=== PATIENT | female | born 1960 | race African-American/Black ===

== ENCOUNTER 2016-11-15 09:00 | Outpatient (CLI) ==
--- NOTE | 2016-11-15 09:27 | US ---
EXAM: Diagnostic right breast ultrasound HISTORY: Questionable palpable lump in the right breast near 5 o'clock. COMPARISON: Diagnostic mammogram 11/02/2016 FINDINGS: There is no sonographic abnormality to account for patient's palpable lump. No cyst or pa renchymal abnormalities present. There is normal breast parenchyma identified. IMPRESSION: No nodule to account for patient's palpable lump. Recommendation: No follow-up is required by mammogram or ultrasound. If nodule persists or increas es in size, follow-up may be obtained as clinically indicated. BIRADS category 1: Negative
== END 2016-11-15 09:01 | disposition home or self-care (01) ==
LOC: RAD 09:00
PROVIDERS: ATTEND Registered Nurse
DX: N64.59 Other signs and symptoms in breast (principal)

== ENCOUNTER 2016-11-21 11:28 | Outpatient (CLI) ==
[2016-11-21 12:01] LABS: BASOPHILS % (AUTO) 0.5 % (0.0-3.0); EOSINOPHILS # (AUTO) 0.2 K/ul (0.0-0.7); EOSINOPHILS % (AUTO) 1.8 % (0.0-7.0); HEMATOCRIT 31.2 % (37.0-47.0); HEMOGLOBIN 10.3 g/dl (12.0-16.0); IMMATURE GRANULOCYTE % (AUTO) 0.2 % (0.0-5.0); LYMPHOCYTES # (AUTO) 3.8 K/uL (0.60-3.4); LYMPHOCYTES % (AUTO) 46.3 (10.0-50.0); MEAN CORPUSCULAR HEMOGLOBIN 28.9 pg (27.0-31.0); MEAN CORPUSCULAR VOLUME 87.4 fl (81.0-99.0); MONOCYTES # (AUTO) 0.5 K/uL (0.4-2.0); NEUTROPHILS # (AUTO) 3.7 K/ul (2.0-6.9); NEUTROPHILS % (AUTO) 45.2; PLATELET COUNT 322 10^3/uL (140-440); RED BLOOD COUNT 3.57 10^6/ul (4.20-5.40); WHITE BLOOD COUNT 8.19 K/ul (4.6-10.2)
[2016-11-21 12:38] LABS: ALBUMIN 3.3 g/dL (3.4-5.0); ALBUMIN/GLOBULIN RATIO 0.87; ANION GAP 13.1; BILIRUBIN,TOTAL 0.25 mg/dL (0.00-1.20); BUN/CREATININE RATIO 17.54; CALCIUM 9.1 mg/dL (8.2-10.2); CHOL/HDL RATIO 3.7 (4.5-5.5); CREATININE 1.14 mg/dL (0.60-1.30); POTASSIUM 4.1 mmol/L (3.5-5.10); TOTAL PROTEIN 7.1 g/dL (6.4-8.2)
== END 2016-11-21 11:29 | disposition home or self-care (01) ==
LOC: LAB 11:28
DX: E11.9 Type 2 diabetes mellitus without complications (principal); I10 Essential (primary) hypertension; Z79.4 Long term (current) use of insulin
CPT/HCPCS: 36415; 80053; 80061; 83036; 84443; 85025

== ENCOUNTER 2017-01-19 10:10 | Outpatient (CLI) | END 2017-01-19 10:11 | disposition home or self-care (01) | LOC: LAB 10:10 | PROVIDERS: ATTEND Internal Medicine Interventional Cardiology | DX: R06.02 Shortness of breath (principal); R60.9 Edema, unspecified | CPT/HCPCS: 36415; 83880 ==

== ENCOUNTER 2017-02-19 12:00 | Outpatient (CLI) ==
[2017-02-19 12:30] LABS: ANION GAP 16.2; CALCIUM 9.3 mg/dL (8.2-10.2); CREATININE 1.1 mg/dL (0.60-1.30); POTASSIUM 4.2 mmol/L (3.5-5.10)
== END 2017-02-19 12:01 | disposition home or self-care (01) ==
LOC: LAB 12:00
PROVIDERS: ATTEND Internal Medicine Interventional Cardiology
DX: R60.9 Edema, unspecified (principal); R06.02 Shortness of breath
CPT/HCPCS: 36415; 80048

== ENCOUNTER 2017-03-07 10:28 | Outpatient (CLI) ==
--- NOTE | 2017-03-08 11:37 | ECHOCOLOR ---
Date of Exam: 03/07/17 Ordering Physician: SANFORD JJ Reason for Echo: SOB M-Mode Normal Adult Results LV Dimensions Normal Adult Results AoV Opening excursions >1.6 >1.6 LVEDD-base- 3.5-5.8 4.5 Ao root dimensions 2.0-3.7 3.2 LVESD-base- 3.1-4.6 L. Atrium dimensions 1.9-3.8 4.1 Post. Wall thickness 0.8-1.1 1.3 IV septum (thickness) 0.7-1.2 1.4 Post. Wall excursion 0.72-1.3 NORMAL Septal motion NORMAL Systolic motion R. Ventricular cavity 1.5-2.0 NORMAL LVEF 60% 50-55% Paradoxical septal wall motion NORMAL 2-D: NORMAL LEFT VENTRICULAR CONTRACTILITY--NORMAL VALVES--NO EFFUSION, NO THROMBUS, ENLARGED LEFT ATRIAL CAVITY, NORMAL LEFT VENTRICLE SIZE DOPPLER WITH COLOR FLOW: NORMAL VALVULAR FLOW INDICES/ TRIVIAL PULMONARY REGURGITATION/ MITRAL REGURGITATION M-MODE: MV: NORMAL AV: NORMAL TV: NORMAL PV: CHAMBER SIZE: ENLARGED LEFT ATRIAL CAVITY (4.1 CM) WALL MOTION: NORMAL PERICARDIUM: VERY SMALL PERICARDIAL EFFUSION INTERPRETATION: 1. LEFT VENTRICLE HYPERTROPHY WITH ENLARGED LEFT ATRIAL CAVITY (MILD 4.1 CM) 2. NORMAL LEFT VENTRICULAR CONTRACTILITY 3. VERY SMALL PERICARDIAL EFFUSION 4. NORMAL VALVULAR FLOW INDICES BY DOPPLER 5. COLOR FLOW TRIVIAL PULMONARY REGURGITATION AND MITRAL REGURGITATION MTDD
== END 2017-03-07 10:29 | disposition home or self-care (01) ==
LOC: CAR 10:28
PROVIDERS: ATTEND Internal Medicine Interventional Cardiology
DX: R06.02 Shortness of breath (principal); R60.9 Edema, unspecified

== ENCOUNTER 2017-03-12 09:30 | Outpatient (CLI) ==
[2017-03-12 10:00] LABS: BASOPHILS % (AUTO) 0.5 % (0.0-3.0); EOSINOPHILS # (AUTO) 0.2 K/ul (0.0-0.7); EOSINOPHILS % (AUTO) 2.7 % (0.0-7.0); HEMATOCRIT 31.1 % (37.0-47.0); HEMOGLOBIN 10.1 g/dl (12.0-16.0); IMMATURE GRANULOCYTE % (AUTO) 0.2 % (0.0-5.0); LYMPHOCYTES # (AUTO) 2.8 K/uL (0.60-3.4); LYMPHOCYTES % (AUTO) 41.8 (10.0-50.0); MEAN CORPUSCULAR HEMOGLOBIN 28.5 pg (27.0-31.0); MEAN CORPUSCULAR HGB CONC 32.5 (31.8-35.4); MEAN CORPUSCULAR VOLUME 87.6 fl (81.0-99.0); MONOCYTES # (AUTO) 0.5 K/uL (0.4-2.0); MONOCYTES % (AUTO) 6.9 (0-10); NEUTROPHILS # (AUTO) 3.2 K/ul (2.0-6.9); NEUTROPHILS % (AUTO) 47.9; PLATELET COUNT 322 10^3/uL (140-440); RED BLOOD COUNT 3.55 10^6/ul (4.20-5.40); WHITE BLOOD COUNT 6.63 K/ul (4.6-10.2)
[2017-03-12 10:45] LABS: ALBUMIN 3.2 g/dL (3.4-5.0); CALCIUM 9.4 mg/dL (8.2-10.2); POTASSIUM 4.5 mmol/L (3.5-5.10)
[2017-03-12 10:46] LABS: ALBUMIN/GLOBULIN RATIO 0.82; ANION GAP 14.5; BILIRUBIN,TOTAL 0.25 mg/dL (0.00-1.20); BUN/CREATININE RATIO 14.92; CHOL/HDL RATIO 5.2 (4.5-5.5); CREATININE 1.34 mg/dL (0.60-1.30); TOTAL PROTEIN 7.1 g/dL (6.4-8.2)
== END 2017-03-12 09:31 | disposition home or self-care (01) ==
LOC: LAB 09:30
DX: E78.2 Mixed hyperlipidemia (principal); E11.9 Type 2 diabetes mellitus without complications; I10 Essential (primary) hypertension; Z79.4 Long term (current) use of insulin
CPT/HCPCS: 36415; 80053; 80061; 83036; 84443; 85025

== ENCOUNTER 2017-04-10 08:02 | Day surgery (SDC) ==
[2017-04-10] MEDS ORDERED: VERSED ONE (10:35)
[2017-04-10] MEDS ORDERED: DIPRIVAN 20 ML VIAL IVP ONE (10:35)
[2017-04-10 12:15] VITALS: BP 172/88; TEMP 97.6
--- NOTE | 2017-04-11 15:11 | OP ---
INDICATIONS FOR PROCEDURE: 56 year old white with a history of abnormalis polyps with colonoscopy one year ago with suboptimal prep presents for a colonoscopy exam. MEDICATIONS: SEE ANESTHESIA NOTES. PROCEDURE: COLONOSCOPY. SNARE POLYPECTOMY. REPORT: The risks, benefits, alternatives and limitations were discussed in detail with the patient. Informed consent was obtained. After adequate sedation was achieved, a digital rectal exam revealed good tone, no masses. The colonoscope was introduced into the rectum and advanced under direct visual guidance to the cecum. The cecum was identified by the appendiceal orifice and IC valve. I then slowly withdrew the scope in circumferential manner and examined the mucosa quite carefully. I looked on the proximal and distal sides of folds and flexures as best as possible. I was able to retroflex the scope in the right colon and the left colon to increase visualization. The prep was adequate. The clonic mucosa was unremarkable in it' s entire length expect for retroflex view of the rectum there was a small 5-6mm semi- sessile polyp. I was able to remove this by snare technique. No other abnormalities were noted. Withdraw time was 12 minutes and 6 seconds. The patient tolerated the procedure well with stable vital signs and pulse oximetry throughout. IMPRESSION: 1. Small rectal polyp removed RECOMMENDATIONS: 1. High fiber diet 2. Office visit as needed 3. Await polyp pathology and if everything is benign as expected I recommend repeat colonoscopy examination again in 5 years or sooner if signs symptoms would indicate otherwise CC: Dr. Liz JACK
== END 2017-04-10 12:23 | disposition home or self-care (01) ==
LOC: SURG 08:02
PROVIDERS: ATTEND Internal Medicine Gastroenterology
DX: Z09 Encounter for follow-up examination after completed treatment for conditions other than malignant neoplasm (principal); Z86.010 Personal history of colon polyps; D12.7 Benign neoplasm of rectosigmoid junction

== ENCOUNTER 2017-05-03 10:46 | Outpatient (CLI) ==
[2017-05-03 11:44] LABS: ANION GAP 14.7; BUN/CREATININE RATIO 17.29; CALCIUM 8.9 mg/dL (8.2-10.2); CREATININE 1.33 mg/dL (0.60-1.30); POTASSIUM 4.7 mmol/L (3.5-5.10)
== END 2017-05-03 10:47 | disposition home or self-care (01) ==
LOC: LAB 10:46
PROVIDERS: ATTEND Internal Medicine Interventional Cardiology
DX: I10 Essential (primary) hypertension (principal)
CPT/HCPCS: 36415; 80048

== ENCOUNTER 2017-05-07 08:07 | Outpatient (CLI) | END 2017-05-07 08:08 | disposition home or self-care (01) | LOC: CAR 08:07 | PROVIDERS: ATTEND Internal Medicine Interventional Cardiology | DX: R00.2 Palpitations (principal) ==

== ENCOUNTER 2018-03-13 10:16 | Outpatient (CLI) | END 2018-03-13 10:17 | disposition home or self-care (01) | LOC: LAB 10:16 | DX: Z12.31 Encounter for screening mammogram for malignant neoplasm of breast (principal); I10 Essential (primary) hypertension; Z86.39 Personal history of other endocrine, nutritional and metabolic disease | CPT/HCPCS: 36415; 80053; 80061; 83036; 84443; 85025 ==